=== PATIENT | female | born 1980 | race Caucasian/White ===

== ENCOUNTER 2020-02-20 16:03 | Emergency (ER) | payer OTHER ==
[~2020-02-20] VITALS: Ht 170.2 cm; Wt 59.0 kg
[2020-02-20] MEDS ORDERED: ACET-2154 PO (16:18)
--- NOTE | 2020-02-20 16:27 | NUR ---
Dr. Tsang at bedside for MSE
[2020-02-20 17:03] LABS: BASOPHILS % (AUTO) 0.6 % (0.0-2.0); EOSINOPHILS # (AUTO) 0.1 K/uL (0.0-0.7); EOSINOPHILS % (AUTO) 1.2 % (0.0-7.0); HEMATOCRIT 40.6 % (31.2-41.9); HEMOGLOBIN 13.8 g/dL (10.9-14.3); LYMPHOCYTES % (AUTO) 31.5 % (20.5-51.5); MEAN CORPUSCULAR HEMOGLOBIN 29.7 uug (24.7-32.8); MEAN CORPUSCULAR HGB CONC 34 g/dL (32.3-35.6); MEAN CORPUSCULAR VOLUME 87.3 fL (75.5-95.3); MONOCYTES # (AUTO) 0.4 K/uL (2.0-10.0); MONOCYTES % (AUTO) 6.8 % (0.0-11.0); NEUTROPHILS # (AUTO) 3.8 K/uL (1.8-8.9); NEUTROPHILS % (AUTO) 59.9 % (38.5-71.5); PLATELET COUNT (AUTO) 243 K/uL (179-408); RED BLOOD CELL COUNT(AUTO) 4.65 MIL/uL (3.63-4.92); WHITE BLOOD COUNT (AUTO) 6.3 K/uL (3.8-11.8)
[2020-02-20 17:11] LABS: CREATININE 0.6 mg/dL (0.6-1.3); POTASSIUM 4.2 mmol/L (3.5-5.1)
--- NOTE | 2020-02-20 17:36 | NUR ---
Patient discharged to home in stable condition. Written and verbal after care instructions given. Patient verbalizes understanding of instructions. Stressed follow up or return to ER for worsening s/s. Patient ambulating with steady gait. NAD noted
[2020-02-20 17:47] VITALS: BP 127/73
== END 2020-02-20 17:36 | disposition home or self-care (01) ==
LOC: ER 16:05
DX: N93.8 Other specified abnormal uterine and vaginal bleeding (principal); Z87.898 Personal history of other specified conditions
CPT/HCPCS: 36415; 76856; 85025; 86850; 86900; 86901; A4663

== ENCOUNTER 2021-04-28 01:14 | Emergency (ER) | payer OTHER ==
[~2021-04-28] VITALS: Ht 170.2 cm; Wt 81.6 kg
[~2021-04-28 01:14] MED LIST: ACET-2154 PO
--- NOTE | 2021-04-28 01:57 | NUR ---
ERMD into eval patient.
[2021-04-28] MEDS ORDERED: OXYCODONE HCL 5 MG TABLET ONE (02:22)
[2021-04-28] MEDS ORDERED: OXYCODONE HCL 5 MG TABLET PO ONE (02:30)
[2021-04-28] MEDS ORDERED: OXYC5CAP18 PO (02:44)
[2021-04-28] MEDS ORDERED: ONDA4TAB5 GT (02:44)
--- NOTE | 2021-04-28 02:47 | NUR ---
Patient discharged to home in stable condition with family taking patient home. Written and verbal after care instructions given. Patient verbalizes understanding of instructions. Stressed follow up or return to ER for worsening s/s.
[2021-04-28 02:48] VITALS: BP 133/72
== END 2021-04-28 02:48 | disposition home or self-care (01) ==
LOC: ER 01:21
DX: S50.01XA Contusion of right elbow, initial encounter (principal); S16.1XXA Strain of muscle, fascia and tendon at neck level, initial encounter; V49.40XA Driver injured in collision with unspecified motor vehicles in traffic accident, initial encounter; Y92.410 Unspecified street and highway as the place of occurrence of the external cause
CPT/HCPCS: 72040; 72072; A4663